=== PATIENT | female | born 1935 | race Caucasian/White ===

== ENCOUNTER 2020-01-28 09:24 | Day surgery (SDC) ==
[2020-01-28] MEDS ORDERED: NS 1,000 ML IV ONE (11:16)
--- NOTE | 2020-01-28 11:33 | Diag Imaging Result Doc PS360 ---
EXAM: CHEST-2 VIEWS HISTORY: eval TECHNIQUE: Two views COMPARISON: None. FINDINGS: The lungs are hyperexpanded. The heart is not enlarged. The vessels are small. There are no infiltrates. No pleural effusions. Mild compression to a lower thoracic vertebra. IMPRESSION: Emphysema Electronically signed by Oren Mayer 01/28/2020 11:31 AM
--- NOTE | 2020-01-28 12:21 | Diag Imaging Result Doc PS360 ---
CT ABD/PELVIS W/IV CONT ONLY - 01/28/2020 INDICATION: hernia COMPARISON: 01/19/2012 FINDINGS: Aside from some scattered linear atelectasis, the lung bases are clear and the heart size is normal. There is high-grade small bowel obstruction, with severe fluid distention of the stomach and much of the small bowel. The distal small bowel is collapsed. There is an epigastric ventral hernia containing a knuckle of small bowel. This is the reason for the obstruction. No free air. The colon and rectum are collapsed. Uterus is absent. Urinary bladder is normal. There is a second, inguinal hernia on the left side. This contains a knuckle of sigmoid colon. This does not appear to be inflamed or obstructed here. IMPRESSION: 1. Epigastric ventral hernia containing a knuckle of small bowel. This is causing high-grade small bowel obstruction. 2. Left inguinal hernia containing sigmoid colon that is apparently nonobstructive. This exam was performed using automated exposure control, adjustment of mA or kV according to patient size, and/or use of iterative reconstruction technique Electronically signed by Viet Barillas 01/28/2020 12:19 PM
[2020-01-28 12:28] LABS: BASO# 0.03 X1000 (0.0-0.2); BASO% 0.3 % (0.0-0.8); EOS# 0.03 X1000 (0.0-0.7); EOS% 0.3 % (0.0-10.0); HEMATOCRIT 43.8 % (37.0-47.0); HEMOGLOBIN 14.3 g/dL (12.0-16.0); IMM GRAN# 0.02 X1000 (0.0-0.04); IMM GRAN% 0.2 % (0.0-0.5); LYMPH# 0.78 X1000 (1.2-3.4); LYMPH% 7.2 % (20.5-51.1); MCH 30.4 PG (27-31); MCHC 32.6 g/dL (33-37); MONO# 0.83 X1000 (0.11-0.59); MONO% 7.7 % (1.7-9.3); MPV 10.4 FL (7.4-10.4); NEUT# 9.09 X1000 (1.4-6.5); NEUT% 84.3 % (42.2-75.2); PLT 242 X1000 (130-400); RBC 4.71 XMIL (4.2-5.4); RDW 12.7 % (11.5-14.5); WBC 10.78 X1000 (4.8-10.8)
--- NOTE | 2020-01-28 12:38 | EKG Report ---
Test Performed on : 01/28/2020 12:17:26 PM Test Reason : eval Blood Pressure : / mmHG Vent. Rate : 080 BPM Atrial Rate : 080 BPM P-R Int : 196 ms QRS Dur : 112 ms QT Int : 406 ms P-R-T Axes : 071 023 007 degrees QTc Int : 468 ms Normal sinus rhythm. Right bundle branch block Abnormal ECG When compared with ECG of 14-JAN-2011 11:17, Inverted T waves have replaced nonspecific T wave abnormality in Inferior leads QT has lengthened Unconfirmed Result
--- NOTE | 2020-01-28 12:46 | PROVIDER DOCUMENTATION ---
This chart was entered by Ana M Yanez Scribe, acting as scribe for Walter Nation CRNP. HPI-Abdominal Pain/GI Problem - General Chief Complaint: Nausea/Vomiting Stated Complaint: STOMACH PAIN Time Seen by Provider: 01/28/20 10:27 Source: patient Allergies/Adverse Reactions: Patient Allergies Allergy/AdvReac Type Severity Reaction Status Date / Time No Known Allergies Allergy Verified 01/05/20 11:41 - History of Present Illness-ABD Nature of Presenting Problems: 84yof presents to ED cc pain, protruding area to left side mid to upper abdomen since yesterday. Pt reports she felt something 'pop' in left side abdomen, immediately had something 'protrude' from area and every time she coughs or moves it 'pops' in. She also reports every time she has tried to eat since that she vomits. She denies D/C/urinary symptoms/SOB/F/C. Abdominal Pain Onset Location: reports: other (left side mid to upper) Quality of Pain: reports: throbbing Severity in ED: reports: moderate Onset/Duration: reports: 24 hours ago Timing: reports: still present Activities at Onset: reports: light activity Exposure to sick contacts?: No Modifying Factors: worse with: coughing, movement Associated Symptoms: reports: cough, vomiting. denies: diarrhea, fever/chills Emesis Description: reports: clear Bruising or Bleeding Gums?: No Similar Symptoms Previously?: No Recently seen or treated by another doctor?: No Review of Systems - Adult - REVIEW OF SYSTEMS - ADULT Constitutional: reports: see HPI. denies: chills, fever, fatique Eyes: reports: no symptoms reported Ears, Nose, Mouth & Throat: reports: no symptoms reported Cardiovascular: reports: no symptoms reported Respiratory: reports: see HPI, cough. denies: shortness of breath, wheezing Gastrointestinal: reports: see HPI, abdominal pain (left side mid to upper), vomiting. denies: constipation, diarrhea Genitourinary: reports: see HPI. denies: dysuria, flank pain, hematuria Musculoskeletal: reports: no symptoms reported Integumentary: reports: no symptoms reported Neurological: reports: no symptoms reported Psychiatric: reports: no symptoms reported Endocrine: reports: no symptoms reported Hematologic/Lymphatic: reports: no symptoms reported Allergic/Immunologic: reports: no symptoms reported All Other Systems: Reviewed and Negative Past History - Adult - PAST MEDICAL HISTORY-ADULT Review of Records: reports: Nursing Assessment Review, Medications Reviewed, Social history reviewed & non-contributory. Major Childhood Illnesses: reports: denies history Cardiovascular: reports: denies history Respiratory: reports: denies history Gastrointestinal: reports: denies history Obstetrical/Gynecological: reports: denies history Genitourinary: reports: denies history Musculoskeletal: reports: denies history Neurological: reports: denies history Endocrine/Immune: reports: denies history Other Conditions: reports: denies history - IMMUNIZATION STATUS Childhood Immunizations: See Nurse Assessment Flu Vaccine: See Nurse Assessment - FAMILY HISTORY Family History: reviewed, not pertinent - SOCIAL HISTORY Smoking: denies Physical Exam-General - PHYSICAL EXAM-ADULT Initial Vital Signs Reviewed: Yes - CONSTITUTIONAL General Appearance: appears well, alert. negative: anxious, combative - EYES Eyes: PERRL/EOMI, pink conjunctivae. negative: photophobia - HEAD, EARS, NOSE, MOUTH & THROAT HENMT: normocephalic/atraumatic, moist mucous membranes. negative: angioedema - NECK Neck: non-tender, full range of motion, supple, normal inspection. negative: lymphadenopathy - RESPIRATORY Respiratory: chest non-tender, lungs clear, normal breath sounds. negative: rhonchi, wheezing - CARDIOVASCULAR Cardiovascular: normal peripheral pulses, regular rate, rhythm, no edema, no murmur. negative: bradycardia, tachycardia - GASTROINTESTINAL (ABDOMEN) Abdominal Exam: normal bowel sounds, soft, tenderness (left upper to mid abdomen), hernia (left upper to mid abdomen; not reducible). negative: rigid - LYMPHATIC Lymphatic: no adenopathy. negative: enlargement - MUSCULOSKELETAL Back Exam: normal inspection, no CVA tenderness, no vertebral tenderness Extremity: normal range of motion, non-tender, normal gait, normal inspection, no pedal edema, no calf tenderness, normal capillary refill. negative: deformity, swelling - SKIN Integumentary: normal color, normal turgor, warm/dry. negative: diaphoresis, jaundice, rash - NEUROLOGIC Neurologic: linoleum printer II-XII nml as tested, grossly normal - PSYCHIATRIC Psych/Mental Status: normal mood/affect, oriented x 3. negative: anxious Progress - PLAN OF CARE/RESULTS Progress/Plan/Lab Results: Vital Signs - 8 hr 01/28/20 09:58 01/28/20 10:37 Temperature 98.3 F Pulse Rate 88 88 Respiratory Rate 18 18 Blood Pressure 142/89 133/88 O2 Sat by Pulse Oximetry 91 L 96 Orders Category Date Time Status NEWS Score 2-4:Order NEWS Lactate Series NOW Care 01/28/20 10:01 Active LACTATE, PLASMA [CHEM] Q3H Lab 01/28/20 10:15 Uncollected LACTATE, PLASMA [CHEM] Q3H Lab 01/28/20 13:15 Uncollected LACTATE, PLASMA [CHEM] Q3H Lab 01/28/20 16:15 Uncollected Result Diagrams: 01/28/20 12:10 - EKG 1 Time of EKG reading by physician:: 12:17 EKG Read and Signed by:: Yuriy Adkins EKG Interpretation (*Must complete 3 of following elements*): Abnormal Rate: 80 Rhythm: NSR QRS: RBB ID Interval: normal ST Wave: normal - XRAY 1 XRAY: Bilateral XRAY Study: Chest Impression: See EMR Report (IMPRESSION: Emphysema Electronically signed by Oren Mayer 01/28/2020 11:31 AM) - CT/MRI 1 CT Study: Abdomen, Pelvis Impression: See EMR Report (IMPRESSION: 1. Epigastric ventral hernia containing a knuckle of small bowel. This is causing high-grade small bowel obstruction. 2. Left inguinal hernia containing sigmoid colon that is apparently nonobstructive. This exam was performed using automated exposure control, adj ustment of mA or kV according to patient size, and/or use of iterative reconstruction technique Electronically signed by Viet Barillas 01/28/2020 12:19 PM) - CONSULTS/PCP/HOSPITALIST Notification #1 *Consult/PCP/Hospitalist*: Dr. Mckeon paged @[phone] Time Discussed: 12:33 Consult Disposition: Will see in ED Departure - Departure Date of Disposition Decision: 01/28/20 Time of Disposition Decision: 12:29 DIAGNOSIS: Ventral hernia with bowel obstruction Disposition: ADMITTED INPATIENT 09 Certified Medical Emergency: Emergent Condition: Stable Additional Instructions: ED Follow Up Instructions: You have been treated by a care provider in the Emergency Department. These in structions are being provided to you so you can have an understanding of how to care for yourself upon discharge. Upon discharge from the Emergency Department, you are responsible for making arrangements for follow-up care by a physician of your choice. Take all prescribed medications as directed. Return to the Emergency Department immediately for any new or worsening symptoms. You may call the Physician Referral phone number at [phone] to obtain a list of Physicians who are taking new patients. Referrals and Follow-Ups: Caitlin Radford MD [Primary Care Provider] - - Critical Care Note This patient required my direct & personal management of CC.: No Attestation - Physician/ PERFECTO Attestation Patient care was provided by Advanced Practice Provider:: Yes Advanced Practice Provider:: Walter Nation Advanced Practice Provider documentation review:: The Mid-level provider documentation, treatment plan and medical decision making was reviewed by the physician who agrees with all treatment and medical decision making by the MLP. The physician spent face to face time with patient:: No Advanced Practice Provider documentation review:: Supervising physician onsite and consulted in the evaluation and care of this patient. The physician did not have a face to face encounter with the patient. This chart was documented by the indicated scribe, (Ana M Yanez Scribe) and accurately reflects the services I performed and decisions made by me, Walter Nation CRNP, as attested by the provider's signature.
[2020-01-28 12:47] LABS: ALB/GLOB RATIO 1.4; ALBUMIN 3.8 g/dL (3.5-5.0); CREATININE 0.9 mg/dL (0.5-0.9); TOTAL BILIRUBIN 0.59 mg/dL (0.20-1.00); TOTAL PROTEIN 6.5 g/dL (6.3-8.3)
[2020-01-28] MEDS ORDERED: LR 1,000 ML ONE (13:01)
[2020-01-28] MEDS ORDERED: SENSORCAINE 0.25%/EPI 1:200,000 ONE (13:01)
[2020-01-28] MEDS ORDERED: MEFOXIN 2 GM/NS 2 GM/50 ML IVPB ONE (13:29)
--- NOTE | 2020-01-28 15:01 | OPERATIVE NOTE ---
PROCEDURE DATE: 01/28/2020 PREOPERATIVE DIAGNOSIS: Incarcerated ventral hernia. POSTOPERATIVE DIAGNOSIS: Incarcerated ventral hernia. PROCEDURE PERFORMED: Laparoscopic converted to open ventral hernia repair with mesh (Bard Ventralex small mesh). SURGEON: Regulo Mckeon MD. FOOD SERVICE ORDER CLERK: None. ANESTHESIA: General endotracheal. INTRAOPERATIVE FINDINGS: A 2 cm defect containing bowel that was viable. COMPLICATIONS: None at the time of this dictation. ESTIMATED BLOOD LOSS: 20 mL. SPECIMEN REMOVED: Hernia sac. BRIEF HISTORY: An 84-year-old female who presented with a hernia. It was incarcerated and causing a bowel obstruction. Thus, she needed to have it repaired. The risks, benefits, and alternatives were discussed with the patient. The risks including, but not limited to bleeding, infection, risk of anesthesia, risk of recurrence, risk of mesh complications, risk of bowel injury were discussed. All questions were answered. DESCRIPTION OF PROCEDURE: After informed consent was obtained, the patient was brought to the operative theatre, transferred to the operating table, and placed in the supine position. General endotracheal anesthesia was then performed without complication. A formal time-out was then performed, confirming patient, date, and procedure. All were in agreement. At that time, attention was given to the abdomen. We initially started laparoscopically. We placed a 5 mm trocar in the left upper quadrant using the Optiview technique. Insufflation, pneumoperitoneum was achieved. We then placed another 5 mm trocar for an instrument just inferior to this. There was the obvious hernia defect noted just above the umbilicus. I tried to reduce the hernia contents but they were too well-incarcerated. We then converted to an open and made an incision over the ventral hernia, carried it all the way down, identified the hernia sac, opened up the hernia sac, and circumferentially dissected off the fascia, which was very tenuous. The bowel reduced once we enlarged the hernia defect but it appeared to be viable. We transected the hernia sac and circumferentially cleaned up the fascia. I then placed a Bard Ventralex small mesh into the area, circumferentially sewed it in place, and then sewed the fascia on top of it. Again, her fascia was very tenuous but we were able to get it closed. We then irrigated out the wound, then closed the skin with a running Monocryl, then closed the trocar site. The patient tolerated the procedure well. She was transferred to the recovery room. We will watch her overnight. cc: Regulo Mckeon MD
[2020-01-28 15:13] LABS: URINE SOURCE CATH
[2020-01-28 15:20] LABS: BILIRUBIN URINE NEGATIVE (NEGATIVE); BLOOD URINE NEGATIVE (NEGATIVE); COLOR YELLOW; GLUCOSE URINE NEGATIVE (NEGATIVE); KETONE URINE 10 mg/dL (NEGATIVE); LEUKOCYTES URINE NEGATIVE (NEGATIVE); NITRITE URINE NEGATIVE (NEGATIVE); PROTEIN URINE TRACE mg/dL (NEGATIVE); TURBIDITY URINE CLEAR (CLEAR); UROBILINOGEN URINE NORMAL (NORMAL)
[2020-01-28 15:21] LABS: UR EPITHELIAL CELLS <10 /HPF (<10); URINE BACTERIA NEGATIVE /HPF; URINE RBC <10 /HPF (<10); URINE WBC <10 /HPF (<10)
[2020-01-28] MEDS ORDERED: MORPHINE ONE (15:21)
[2020-01-28 16:26] LABS: SP GRAVITY URINE 1.005
[2020-01-28] MEDS ORDERED: ZOFRAN IV PRN (16:26)
[2020-01-28] MEDS ORDERED: NORCO-5 PO PRN (16:26)
[2020-01-28] MEDS ORDERED: XALATAN 0.005% OPH SOLN BOTH EYES SCH (21:00)
[2020-01-28] MEDS: PERIDEX MT SCH (21:50)
[2020-01-29] MEDS ORDERED: SYNTHROID PO SCH (06:00)
--- NOTE | 2020-01-29 06:02 | GENERAL SURGERY PROGRESS NOTE ---
DATE: 01/29/2020 SUBJECTIVE: Patient seems to be doing okay. She says she is feeling better than she did before the surgery. OBJECTIVE: Vital Signs: Patient is currently afebrile. Her vital signs are stable. General: No acute distress. Cardiovascular: Regular rate and rhythm. Lungs: Grossly clear. Abdomen: Soft, appropriately tender. ASSESSMENT AND PLAN: An 84-year-old female currently postoperative day #1 from open ventral hernia repair of incarcerated hernia. Postoperative state. At this time she seems to be doing well. Will see how she does for breakfast and lunch and if she does okay, may consider discharge today. cc: Regulo Mckeon MD
[2020-01-29] MEDS: PERIDEX MT SCH (08:53)
[2020-01-29] MEDS ORDERED: COZAAR PO SCH (09:00)
[2020-01-29] MEDS ORDERED: NORVASC PO SCH (09:00)
[2020-01-29 10:51] VITALS: BP 124/60
[2020-01-29] MEDS ORDERED: RELAFEN PO SCH (15:00)
--- NOTE | 2020-01-30 10:00 | DISCHARGE SUMMARY ---
ADMISSION DATE: 01/28/2020 DISCHARGE DATE: 01/29/2020 ADMITTING DIAGNOSIS: Incarcerated ventral hernia. DISCHARGE DIAGNOSIS: Status post open repair of incarcerated hernia. ADMITTING PHYSICIAN: Dr. Regulo Mckeon. CONSULTATIONS: None. PROCEDURES: On 01/28/2020, the patient underwent open ventral hernia repair. BRIEF HISTORY AND COURSE OF STAY: An 84-year-old female presenting with a bowel obstruction, pain, and a bulge in her epigastric region. She was seen in the emergency department. Had a CT scan that confirmed the presence of a hernia. It was felt that she would benefit from a hernia repair. The risks, benefits, and alternatives were discussed. She was admitted and underwent the procedure which she tolerated well. We did watch her overnight, given her age and the way her bowel looked. She was able to the eat the next day. She was afebrile. Her pain was controlled. It was felt that she would be safe to be discharged home. All arrangements were made. DISPOSITION: Home. DISCHARGE CONDITION: Stable. FOLLOWUP: The patient was told to follow up with Dr. Mckeon. cc: Regulo Mckeon MD
== END 2020-01-29 14:57 | disposition other institution (70) ==
LOC: ED 09:24 → 4N 09:24 → OPS 16:23
PROVIDERS: ATTEND Surgery